=== PATIENT | male | born 1945 | race Caucasian/White ===

== ENCOUNTER 2019-08-30 11:34 | Day surgery (SDC) | payer OTHER ==
[~2019-08-30] VITALS: Ht 170.2 cm; Wt 80.8 kg
[~2019-08-30 11:34] MED LIST: ASPI-1265 PO; DORZ10DR10 EACHEYE
[2019-08-30 11:55] VITALS: BP 132/66
[2019-08-30] MEDS ORDERED: normal saline 1000ml 1,000 ML IV SCH (12:00)
[2019-08-30 12:45] LABS: EOSINOPHILS # (AUTO) 0.4 X10'3 (0-0.9); EOSINOPHILS % (AUTO) 9.2 % (0-6); HEMATOCRIT 32.6 % (42.0-52.0); HEMOGLOBIN 10.7 g/dl (14.0-17.9); LYMPHOCYTES # (AUTO) 0.7 X10'3 (1.1-4.8); MEAN CORPUSCULAR HEMOGLOBIN 29.1 PG (27.0-31.0); MEAN CORPUSCULAR HGB CONC 32.8 g/dL (33.0-36.5); MEAN CORPUSCULAR VOLUME 88.7 FL (78-98); MEAN PLATELET VOLUME 6.4 FL (7.4-10.4); MONOCYTES # (AUTO) 0.5 X10'3 (0-0.9); NEUTROPHILS # (AUTO) 2.6 X10'3 (1.8-7.7); NEUTROPHILS % (AUTO) 61.8 % (42-75); PLATELET COUNT 228 X10'3 (140-440); RED BLOOD COUNT 3.67 X10'6 (4.70-6.10); RED CELL DISTRIBUTION WIDTH 18.6 % (11.5-14.5); WHITE BLOOD COUNT 4.3 X10'3 (4.5-11.0)
[2019-08-30] MEDS ORDERED: iohexol 300mg/ml 100ml inj. ONE (12:59)
[2019-08-30] MEDS ORDERED: ACET-890 PO (13:08)
[2019-08-30] MEDS ORDERED: LACT1CAP65 PO (13:08)
[2019-08-30] MEDS ORDERED: OMEP-50 PO (13:08)
[2019-08-30] MEDS ORDERED: POLY119P2 PO (13:08)
[2019-08-30] MEDS ORDERED: AMLO10TA48 PO (13:08)
[2019-08-30] MEDS ORDERED: POTA20TA10 PO (13:08)
[2019-08-30] MEDS ORDERED: ALLO100T49 PO (13:08)
[2019-08-30] MEDS ORDERED: CEFT2PIG IV (13:08)
[2019-08-30] MEDS ORDERED: MAGN400C PO (13:08)
[2019-08-30] MEDS ORDERED: ATOR40TA7 PO (13:08)
[2019-08-30] MEDS ORDERED: HYDR12.55 PO (13:08)
[2019-08-30] MEDS ORDERED: LISI10TA4 PO (13:08)
[2019-08-30] MEDS ORDERED: CYAN10006 IM (13:08)
[2019-08-30] MEDS ORDERED: LEVO25TA7 PO (13:08)
[2019-08-30] MEDS ORDERED: NAPH1POW3 PO (13:08)
[2019-08-30 13:19] LABS: ANISOCYTOSIS 2+; PLATELET ESTIMATE NORMAL
[2019-08-30 13:20] LABS: SCHISTOCYTES FEW
[2019-08-30 13:21] VITALS: BP 152/78
[2019-08-30 13:34] VITALS: BP 172/83
== END 2019-08-30 13:45 ==
LOC: SSTAY O 11:34 → EDSTATUS 13:00 → SSTAY O 13:45
PROVIDERS: ATTEND Radiology Diagnostic Radiology
DX: Z09 Encounter for follow-up examination after completed treatment for conditions other than malignant neoplasm (principal); K80.20 Calculus of gallbladder without cholecystitis without obstruction; K31.89 Other diseases of stomach and duodenum; Z88.5 Allergy status to narcotic agent; Z91.018 Allergy to other foods; Z79.899 Other long term (current) drug therapy; Z79.82 Long term (current) use of aspirin; Z82.49 Family history of ischemic heart disease and other diseases of the circulatory system
CPT/HCPCS: 36415; 74160; 85025; Q9967